=== PATIENT | male | born 1950 | race Caucasian/White ===

== ENCOUNTER 2018-05-03 17:20 | Inpatient (IN) | payer OTHER ==
[~2018-05-03] VITALS: Ht 165.1 cm; Wt 68.0 kg
[~2018-05-03 17:20] MED LIST: ALTOPREV20 MG; ARICEPT10 MG; ASA81 MG; GLIMEPIRIDE4 MG; GLUCOPHAGE XR500 MG; LEVAQUIN750 MG PO; LISINOPRIL-HCTZ1 TA7; LISINOPRIL5 MG; METFORMIN HCL1000 MG; NITROFURANTOIN100 MG; TOPROL XL50 MG
[2018-05-03] MEDS ORDERED: GLIPIZIDE10 MG (17:28)
[2018-05-03] MEDS ORDERED: AMLODIPINE BESYL5 MG (17:28)
[2018-05-03] MEDS ORDERED: METFORMIN HCL500 MG (17:28)
== END 2018-05-08 19:40 | disposition home or self-care (01) | DRG 191 ==
LOC: ER 17:20 → MEDI 05-04 13:47 → SEC-K 05-04 13:47 → MEDI 05-04 14:39
PROC: 4A033R1 Measurement of Arterial Saturation, Peripheral, Percutaneous Approach (ICD-10-PCS; principal; 2018-05-04)
PROC: 3E0F7GC Introduction of Other Therapeutic Substance into Respiratory Tract, Via Natural or Artificial Opening (ICD-10-PCS; 2018-05-04)
DX: J44.1 Chronic obstructive pulmonary disease with (acute) exacerbation (principal); N39.0 Urinary tract infection, site not specified; J21.8 Acute bronchiolitis due to other specified organisms; J20.9 Acute bronchitis, unspecified; J44.0 Chronic obstructive pulmonary disease with (acute) lower respiratory infection; R09.02 Hypoxemia; Z74.01 Bed confinement status; Z86.73 Personal history of transient ischemic attack (TIA), and cerebral infarction without residual deficits; E11.22 Type 2 diabetes mellitus with diabetic chronic kidney disease; I13.10 Hypertensive heart and chronic kidney disease without heart failure, with stage 1 through stage 4 chronic kidney disease, or unspecified chronic kidney disease; N18.3 Chronic kidney disease, stage 3 (moderate); E78.4 Other hyperlipidemia; D63.1 Anemia in chronic kidney disease; B96.29 Other Escherichia coli [E. coli] as the cause of diseases classified elsewhere

== ENCOUNTER 2018-11-13 08:13 | Inpatient (IN) | payer OTHER ==
[~2018-11-13] VITALS: Ht 198.1 cm; Wt 68.0 kg
[~2018-11-13 08:13] MED LIST changes: +AMLODIPINE BESYL5 MG; +GLIPIZIDE10 MG; +METFORMIN HCL500 MG
[2018-11-13] MEDS ORDERED: COZAAR25 MG (08:40)
[2018-11-13] MEDS ORDERED: INVANZ1 GM (08:40)
--- NOTE | 2018-11-13 08:42 | NUR ---
SE RECIBE PTE INACTIVO, SIN RESPUESTAS A ESTIMULOS VERBALES O TACTIL EL CUAL LLEGA EN AMBULANCIA. PARAMEDICOS REFIERE SOB DESDE HOY. SE PRESENTA A LA DRA GARCIA. SE UBICA EN AREA DE OBSERVACION EN ANNE MARIE CONECADO A MONITOR CARDIACO Y OXIMETRIA DE PULSO. PTE LLEGA CON CARLSON Y H/L EN BRAZO RT.
--- NOTE | 2018-11-13 09:15 | NUR ---
EVALUA PACIENTE Y ORDENA [place] MEDICO DEL CUAL SE ORIENTA PACIENTE Y FAMILIAR. FAMILIAR REFIERE ENTENDER. SE COLECTAN MUESTRAS DE LABORATORIOS Y ADMINISTRNA MEDICAMENTOS MARIA VICTORIA ORDEN MEDICA SIGUIENDO MEDIDAS ASEPTICAS. SE NOTIFICAN ABG Y TERAPIAS A TERAPISTA RESPIRATORIO. SE NOTIFICA RN A PERSONAL DE TURNO. SE MANTIENE PACIENTE BAJO OBSERVACION.
--- NOTE | 2018-11-13 12:48 | NUR ---
SE RECIBE PTE DE LA UNIDAD DE OBSERVACION ACOMPANADO POR FAMILIAR CONECTADO A MONITOR CARDIACO CON ,UN V/M AL 28% SATURANDO 100%. ACOMPANADO POR FAMILIAR SE ORIENTA FAMILIAR SOBRE LA UNIDAD. SE MANTIENE EN OBSERVACION Y PENDIENTE A CONSULTA CON .
== END 2018-11-20 18:32 | disposition home or self-care (01) | DRG 177 ==
LOC: ER 08:13 → MEDJ 14:08 → MEDI 14:08 → MEDJ 11-15 10:46
PROVIDERS: ADMIT Specialist
PROC: BH4CZZZ Ultrasonography of Head and Neck (ICD-10-PCS; principal; 2018-11-13)
PROC: BW24ZZZ Computerized Tomography (CT Scan) of Chest and Abdomen (ICD-10-PCS; 2018-11-13)
PROC: 3E0F7GC Introduction of Other Therapeutic Substance into Respiratory Tract, Via Natural or Artificial Opening (ICD-10-PCS; 2018-11-13)
PROC: 4A033R1 Measurement of Arterial Saturation, Peripheral, Percutaneous Approach (ICD-10-PCS; 2018-11-13)
PROC: 5A09457 Assistance with Respiratory Ventilation, 24-96 Consecutive Hours, Continuous Positive Airway Pressure (ICD-10-PCS; 2018-11-13)
PROC: 8E0ZXY6 Isolation (ICD-10-PCS; 2018-11-15)
DX: J69.0 Pneumonitis due to inhalation of food and vomit (principal); J80 Acute respiratory distress syndrome; G81.04 Flaccid hemiplegia affecting left nondominant side; N17.9 Acute kidney failure, unspecified; J44.1 Chronic obstructive pulmonary disease with (acute) exacerbation; J44.0 Chronic obstructive pulmonary disease with (acute) lower respiratory infection; G40.89 Other seizures; B37.41 Candidal cystitis and urethritis; Z79.4 Long term (current) use of insulin; N39.3 Stress incontinence (female) (male); E11.22 Type 2 diabetes mellitus with diabetic chronic kidney disease; I12.9 Hypertensive chronic kidney disease with stage 1 through stage 4 chronic kidney disease, or unspecified chronic kidney disease; N18.3 Chronic kidney disease, stage 3 (moderate); F17.210 Nicotine dependence, cigarettes, uncomplicated; Z74.01 Bed confinement status; J20.9 Acute bronchitis, unspecified; I69.398 Other sequelae of cerebral infarction

== ENCOUNTER 2018-12-22 15:14 | Inpatient (IN) | payer OTHER ==
[~2018-12-22] VITALS: Ht 157.5 cm; Wt 63.5 kg
[~2018-12-22 15:14] MED LIST changes: +COZAAR25 MG; +INVANZ1 GM
--- NOTE | 2018-12-22 15:32 | NUR ---
SE RECIBE MASCULINO ALERTA EN AMBULANCIA EN COMPANIA DE FAMILIAR QUIEN REFIERE QUE PACIENTE PRESENTA INFECCION DE ORINA DE DOS SANCHEZ DE EVOLUCION Y FIEBRE.
--- NOTE | 2018-12-22 18:04 | NUR ---
SE ORIENTA A PACIENTE Y FAMILIAR SOBRE TRATAMIENTO. SE ROSETTA MUESTRAS DE LABORAORIO ORDENADAS. SE CANALIZA CON AREA DE VENOPUNCION RACHEL DE EDEMA O ENROJECIMEINTO. SE ADMINISTRA MEDICAMENTO ORDENADO. SE MANTIENE EN OBSERVACION POR CAMBIOS.
--- NOTE | 2018-12-23 | NUR ---
SE RECIBE PTE ALERTA Y ORIENTADO X3 EN ANNE MARIE CON BARANDAS ELEVADAS. SE RECIBE PTE ACOMPANADO DE FAMILIAR. SE RECIBE PTE CANALIZADO AREA RACHEL DE EDEMA Y DE ENROJECIMIENTO. SE RECIBE PTE CON CARLSON DRENANDO 200ML DE ORINA COLOR ALEXANDRE.PTE EN ESPERA DE CONSULTA CON DRA.ISABEL PALAFOX.
--- NOTE | 2018-12-23 07:46 | NUR ---
PTE ALERTA EN DESCANSO EN CAMA CON BARANDAS ELEVADAS,EN COMPANIA DE FAMILIAR,AREA DE VENOPUNCION PATENTE Y RACHEL DE EDEMA CON FLUIDOS DE MANTENIMIENTO BAJANDO SIN DIFICULTAD.PTE CON CARLSON.PENDIENTE A EVALUACION DE DRA [place].
== END 2018-12-31 20:28 | disposition home or self-care (01) | DRG 304 ==
LOC: ER 15:14 → MEDJ 12-23 10:03 → MEDI 12-23 10:03
PROVIDERS: ADMIT Specialist
DX: I13.10 Hypertensive heart and chronic kidney disease without heart failure, with stage 1 through stage 4 chronic kidney disease, or unspecified chronic kidney disease (principal); G93.41 Metabolic encephalopathy; N17.8 Other acute kidney failure; J44.0 Chronic obstructive pulmonary disease with (acute) lower respiratory infection; N39.0 Urinary tract infection, site not specified; I69.854 Hemiplegia and hemiparesis following other cerebrovascular disease affecting left non-dominant side; J44.1 Chronic obstructive pulmonary disease with (acute) exacerbation; E11.22 Type 2 diabetes mellitus with diabetic chronic kidney disease; N18.3 Chronic kidney disease, stage 3 (moderate); Z74.01 Bed confinement status; E78.49 Other hyperlipidemia; D63.1 Anemia in chronic kidney disease; J20.9 Acute bronchitis, unspecified; E11.21 Type 2 diabetes mellitus with diabetic nephropathy; Z87.891 Personal history of nicotine dependence; E11.65 Type 2 diabetes mellitus with hyperglycemia; B96.29 Other Escherichia coli [E. coli] as the cause of diseases classified elsewhere

== ENCOUNTER 2021-04-14 15:57 | Inpatient (IN) | payer OTHER ==
[~2021-04-14] VITALS: Ht 167.6 cm; Wt 68.0 kg
[2021-04-14] MEDS ORDERED: FORTAMET500 MG (17:26)
[2021-04-23] MEDS ORDERED: ELIQUIS2.5 MG PO (10:10)
== END 2021-04-23 19:01 | disposition home or self-care (01) | DRG 194 ==
LOC: ER 15:57 → ICU-2 23:24 → ER 04-15 02:46 → ICU-2 04-15 02:46 → SEC-K 04-17 15:04 → ICU-2 04-17 15:04 → SEC-K 04-17 16:29 → MEDI 04-17 16:29
PROVIDERS: ADMIT Internal Medicine; ATTEND Internal Medicine
PROC: 4A033R1 Measurement of Arterial Saturation, Peripheral, Percutaneous Approach (ICD-10-PCS; 2021-04-14)
PROC: BW21ZZZ Computerized Tomography (CT Scan) of Abdomen and Pelvis (ICD-10-PCS; 2021-04-14)
PROC: BW25ZZZ Computerized Tomography (CT Scan) of Chest, Abdomen and Pelvis (ICD-10-PCS; 2021-04-14)
PROC: 3E0F7GC Introduction of Other Therapeutic Substance into Respiratory Tract, Via Natural or Artificial Opening (ICD-10-PCS; 2021-04-15)
PROC: B24BZZZ Ultrasonography of Heart with Aorta (ICD-10-PCS; 2021-04-16)
PROC: BW28ZZZ Computerized Tomography (CT Scan) of Head (ICD-10-PCS; 2021-04-16)
PROC: 3E0F7SF Introduction of Other Gas into Respiratory Tract, Via Natural or Artificial Opening (ICD-10-PCS; 2021-04-16)
PROC: 4A12X4Z Monitoring of Cardiac Electrical Activity, External Approach (ICD-10-PCS; principal; 2021-04-17)
DX: J18.8 Other pneumonia, unspecified organism (principal); K56.699 Other intestinal obstruction unspecified as to partial versus complete obstruction; N17.8 Other acute kidney failure; I50.20 Unspecified systolic (congestive) heart failure; N39.0 Urinary tract infection, site not specified; D72.828 Other elevated white blood cell count; I27.20 Pulmonary hypertension, unspecified; I51.3 Intracardiac thrombosis, not elsewhere classified; I71.4 Abdominal aortic aneurysm, without rupture; E83.42 Hypomagnesemia; E11.9 Type 2 diabetes mellitus without complications; B95.62 Methicillin resistant Staphylococcus aureus infection as the cause of diseases classified elsewhere; F17.210 Nicotine dependence, cigarettes, uncomplicated; Z74.01 Bed confinement status; Z86.73 Personal history of transient ischemic attack (TIA), and cerebral infarction without residual deficits; Z20.822 Contact with and (suspected) exposure to COVID-19